=== PATIENT | male | born 1950 | race Asian ===

== ENCOUNTER 2022-07-16 11:15 | Outpatient (RCR) | payer MEDICARE, BC, SELFPAY | END 2022-10-28 10:55 | disposition home or self-care (01) | PROVIDERS: PCP Family Medicine; Visit Provider Family Medicine | DX: M54.42 Lumbago with sciatica, left side (principal); Z51.89 Encounter for other specified aftercare | CPT/HCPCS: 97110; 97140; 97162 ==

== ENCOUNTER 2025-07-13 10:30 | Outpatient (RCR) | payer MEDICARE, BC, SELFPAY | END 2025-09-28 16:09 | disposition home or self-care (01) | PROVIDERS: PCP Family Medicine; Visit Provider Family Medicine | DX: M54.50 Low back pain, unspecified (principal); M79.604 Pain in right leg; M79.605 Pain in left leg; Z51.89 Encounter for other specified aftercare | CPT/HCPCS: 97110; 97140; 97161; 97530 ==

== ENCOUNTER 2025-08-01 09:49 | Outpatient (CLI) | payer MEDICARE, BC, SELFPAY | END 2025-08-01 09:50 | disposition home or self-care (01) | LOC: INJ CL 09:50 | PROVIDERS: PCP Family Medicine; Visit Provider Family Medicine | DX: M54.16 Radiculopathy, lumbar region (principal); M51.360 Other intervertebral disc degeneration, lumbar region with discogenic back pain only | CPT/HCPCS: 62323; J0702; Q9966 ==